=== PATIENT | female | born 1940 | race Caucasian/White ===

== ENCOUNTER → 2017-11-14 15:55 | Outpatient (CLI) | payer OTHER, SELFPAY ==
--- NOTE | 2017-11-14 | DI.RAD.S_ITS ---
PROCEDURE: XR CERVICAL SPINE 2V OR 3V INDICATIONS: CERVICALGIA TECHNIQUE: 3 view(s) of the cervical spine were acquired. COMPARISON: None. FINDINGS: Bones: No fractures or dislocations to the C7 level. The lateral masses of C1 appear intact on the odontoid view. No suspicious bony lesions. Multilevel disc space narrowing and endplate osteophyte formation, worst at C5-C6, and C6-C7, indicating degenerative disc disease. Soft tissues: No prevertebral soft tissue swelling. IMPRESSION: Degenerative disc disease. No acute fracture. No osseous lesion. If clinical suspicion and/or symptoms persist, further assessment with repeat plainfilms, or advanced imaging (e.g., CT, MRI, or bone scan) may be helpful for further assessment. Dictated by: Isaac Benavides M.D. on 11/14/2017 at 16:24 Approved by: Isaac Benavides M.D. on 11/14/2017 at 16:25
== END ==
PROVIDERS: Family Provider Family Medicine; PCP Family Medicine; Visit Provider Family Medicine
DX: M50.322 Other cervical disc degeneration at C5-C6 level (principal)
CPT/HCPCS: 72040

== ENCOUNTER → 2018-07-06 11:53 | Outpatient (CLI) | payer OTHER, SELFPAY ==
--- NOTE | 2018-07-06 | DI.MG.S_ITS ---
BILATERAL DIGITAL SCREENING MAMMOGRAM 3D/2D WITH CAD: 07/06/2018 CLINICAL: Routine screening. Comparison is made to exams dated: 06/23/2017 mammogram, 04/29/2016 mammogram, and 05/29/2015 mammogram - [facility]. The tissue of both breasts is heterogeneously dense. This may lower the sensitivity of mammography. Current study was also evaluated with a Computer Aided Detection (CAD) system. Stable bilateral masses and bilateral benign appearing calcifications. No significant masses, calcifications, or other findings are seen in either breast. There has been no significant interval change. IMPRESSION: There is no mammographic evidence of malignancy. A 1 year screening mammogram is recommended. This exam was interpreted at Station ID: [id number]. NOTE: For mammograms, a report in lay terms will be sent to the patient. Approximately 15% of breast malignancies will not be visualized mammographically. In the management of a palpable breast mass, a negative mammogram must not discourage biopsy of a clinically suspicious lesion. Electronically Signed By: Kirt batres/:07/06/2018 17:29:47 letter sent: Normal Exam ACR BI-RADS Category 2: Benign Finding(s) 3342F
== END ==
PROVIDERS: PCP Family Medicine; Visit Provider Family Medicine
DX: Z12.31 Encounter for screening mammogram for malignant neoplasm of breast (principal)
CPT/HCPCS: 77063; 77067

== ENCOUNTER 2020-01-24 14:19 | Emergency (ER) | payer MEDICARE, SELFPAY ==
[2020-01-24] VITALS (7 sets, daily range): BP systolic 160–167; BP diastolic 72–74; PULSE 58–73; RESP 15–16; TEMP 36.6; O2SAT 94–100; BMI 28.1
--- NOTE | 2020-01-24 14:55 | DI.RAD.S_ITS ---
PROCEDURE: XR ANKLE RT MIN 3V INDICATIONS: fall and injury TECHNIQUE: 3 views of the ankle were acquired. COMPARISON: None. FINDINGS: Bones: Comminuted mildly displaced distal fibular fracture. Horizontal mildly displaced medial malleolar fracture. Question posterior malleolar fracture. Disruption of ankle mortise. No suspicious bony lesions. Soft tissues: No tibiotalar joint effusion. Achilles tendon appears normal. IMPRESSION: Comminuted, mildly displaced distal fibular fracture, horizontal mildly displaced medial malleolar fracture, question posterior malleolar fracture. Disruption of ankle mortise. Dictated by: Alexey Herzog M.D. on 01/24/2020 at 15:18 Approved by: Alexey Herzog M.D. on 01/24/2020 at 15:20
--- NOTE | 2020-01-24 14:58 | ED.LOWEXIN ---
HPI - Extremity Injury (Lower) General Chief Complaint: Extremity Injury, Lower Stated Complaint: RIGHT LEG INJURY SAYS IT IS BROKEN HAD XRAYS Time Seen by Provider: 01/24/20 14:29 Source: patient Mode of arrival: Wheelchair Limitations: no limitations History of Present Illness HPI Narrative: Patient is a 79-year-old female sent over from [facility] secondary to a right tib-fib fracture. Patient states that this morning she tripped on some stairs and fell and twisted her ankle. Was unable to ambulate afterwards. Was able to drive herself to the clinical on work assignment. Had x-rays which showed a right tib-fib fracture. She she was placed in an Isaiah bandage. Given Toradol and sent to the emergency department for evaluation. She reports no other injuries from the event. Related Data Home Medications Medication Instructions Recorded Confirmed conjugated estrogens [Premarin] 0.625 mg PO QDAY #0 07/07/17 Previous Rx's Medication Instructions Recorded hydrocodone-acetaminophen [[place]] 1 tab PO Q4-6H PRN #14 tab 01/24/20 Allergies Allergy/AdvReac Type Severity Reaction Status Date / Time No Known Drug Allergies Allergy Verified 01/24/20 15:07 Review of Systems Constitutional Constitutional: Denies fever(s) Cardiovascular Cardiovascular: Denies chest pain and Denies dyspnea Respiratory Respiratory: Denies dyspnea Gastrointestinal Gastrointestinal: Denies abdominal pain Musculoskeletal Comments: Right ankle pain Integumentary/Breasts Skin/Breast: Denies lesions and Denies rash Neurologic Neurologic: Denies behavioral changes Psychiatric Psychiatric: Denies behavioral changes Hematologic/Lymphatic Hematologic/Lymphatic: Denies easy bleeding and Denies easy bruising Allergic/Immunologic Allergic/Immunologic: Denies urticaria Patient History Medical History Healthy adult (Acute) Social History Smoking Status: Never smoker Smoking Status: Never smoker alcohol intake frequency: 0-2 drinks per day Substance Use Type: does not use Exam Initial Vital Signs Initial Vital Signs: Vital Signs Temperature 97.8 F 01/24/20 14:42 Pulse Rate 73 01/24/20 14:42 Respiratory Rate 16 01/24/20 14:42 Blood Pressure 167/72 H 01/24/20 14:42 Pulse Oximetry 99 01/24/20 14:42 Const General: cooperative and comfortable Limitations: mental status not altered Cardio Pulses: dorsalis pedis present on the right Skin Other: Bruising around the right ankle but no breaks in the skin Neuro Sensory Exam: no sensory deficits noted Extrem Other: Patient with bruising and pain located around the right ankle. No proximal fibula tenderness. Right knee is unremarkable. No other orthopedic injuries found on exam reported by patient. Psych Appearance: well kempt Procedures Orthopedic Splinting/Casting Injury #1: Side: right Lower Extremity Injury Location: ankle Lower Extremity Immobilizer: posterior splint and stirrup splint Other Orthopedic Equipment: crutches Post splinting neuro exam: intact Post splinting vascular exam: intact Placed by: Provider Course Orders Ordered: ED Orders 01/24/20 14:55 XR ankle RT min 3V Stat 01/24/20 15:23 CT LE RT wo con Stat Discontinued Medications Morphine Sulfate (Morphine) 4 mg IM NOW ONE Stop: 01/24/20 15:06 Last Admin: 01/24/20 15:14 Dose: 4 mg Documented by: DAVID Vital Signs Vital signs: Vital Signs - 8 hr 01/24/20 14:42 01/24/20 15:16 01/24/20 15:36 Temperature 97.8 F Pulse Rate 73 Pulse Rate [Right Dorsalis Pedis] Respiratory Rate 16 Blood Pressure 167/72 H Pulse Oximetry 99 100 94 01/24/20 15:59 01/24/20 16:00 01/24/20 16:30 Temperature Pulse Rate 58 L 65 Pulse Rate [Right Dorsalis Pedis] 72 Respiratory Rate Blood Pressure Pulse Oximetry 100 99 01/24/20 16:49 Temperature Pulse Rate 65 Pulse Rate [Right Dorsalis Pedis] Respiratory Rate 15 Blood Pressure 160/74 H Pulse Oximetry MDM - Extremity Injury (Lower) Imaging Data Extremity x-ray #1: Radiologist's Impression: [address] [address] XRay Report Signed Patient: Mary Quiroz MMR#: [id number] : 1Acct:[id number] Age/Sex: 79 / FDate of Service: 01/24/20 Loc: ED Accession Number: [id number] Procedure: XR ankle RT min 3V Ordering Provider: Manuel Torres D.O. PROCEDURE: XR ANKLE RT MIN 3V INDICATIONS: fall and injury TECHNIQUE: 3 views of the ankle were acquired. COMPARISON: None. FINDINGS: Bones: Comminuted mildly displaced distal fibular fracture. Horizontal mildly displaced medial malleolar fracture. Question posterior malleolar fracture. Disruption of ankle mortise. No suspicious bony lesions. Soft tissues: No tibiotalar joint effusion. Achilles tendon appears normal. IMPRESSION: Comminuted, mildly displaced distal fibular fracture, horizontal mildly displaced medial malleolar fracture, question posterior malleolar fracture. Disruption of ankle mortise. Dictated by: Alexey Herzog M.D. on 01/24/2020 at 15:18 Approved by: Alexey Herzog M.D. on 01/24/2020 at 15:20 CT lower extremity: Radiologist's Impression: [address] [address] [address] Scan Report Signed Patient: Mary Quiroz MMR#: [id number] : [id number]:[id number] Age/Sex: 79 / FDate of Service: 01/24/20 Loc: ED Accession Number: [id number] Procedure: CT LE RT wo con Ordering Provider: Manuel Torres D.O. PROCEDURE: CT LE RT WO CON INDICATIONS: Possible trimalleolar fracture TECHNIQUE: Noncontrast 3-mm axial sections acquired from the distal tibial shaft to the talar dome, with coronal and sagittal reformats.. COMPARISON: [facility], CR, XR ANKLE RT MIN 3V, 01/24/2020, 14:58. FINDINGS: Image quality: Excellent. Bones: There is a trimalleolar fracture, involving the right distal tibia and fibula. The fracture across the medial malleolus is approximately 1.3 cm above the malleolar tip, and there is a diagonal fracture involving the distal metadiaphyseal junction of the fibula, with abnormal angulation at the fracture plane associated with medial subluxation of the distal tibial plafond and across the talar dome. A 3rd malleolar fracture is present, mildly comminuted, involving the posterior malleolus, across day border measuring up to 2 cm transverse and with a separation of approximately 3-4 mm at the fracture plane. A talar dome fracture is not found. Soft tissue swelling is prominent without visualized hematoma. The visualized hindfoot and portions of the midfoot included on this study appear free of traumatic injury. Soft tissues: Soft tissue edema and no sign of open fracture. IMPRESSION: Trimalleolar fracture, with abnormal subluxation associated with ligamentous laxity after trauma. The talar dome appears intact, no intra-articular loose body is found. Orthopedic surgical consultation is anticipated. Dictated by: Kevin Lo M.D. on 01/24/2020 at 16:04 Approved by: Kevin Lo M.D. on 01/24/2020 at 16:08 [facility] Narrative Medical decision making narrative: Patient is neurovascularly intact. Splint placed. The emergency department. CT scan obtained. Will send home with crutches. She was given follow-up instructions with orthopedics. Pain medication also provided. She was given return precautions. She expressed understanding and agreement. Discharge Plan Departure Patient Disposition: Home Clinical Impression: Closed trimalleolar fracture of right ankle Qualifiers: Encounter type: initial encounter Qualified Code(s): S82.851A - Displaced trimalleolar fracture of right lower leg, initial encounter for closed fracture Discharge Date/Time: 01/24/20 17:22 Instructions: How to Use Crutches, DI for Ankle Fracture, How to Take Care of Your Splint Activity Restrictions/Additional Instructions: The splint needs to stay on in stay clean and stay dry. You need to treat it like a cast. Do not put any weight on your right lower extremity. Use the crutches as directed. Recommend that tomorrow you contact the [facility] group at [phone] for a follow-up. Return to the emergency department for any new or worsening symptoms Prescriptions: New hydrocodone-acetaminophen [[place]] 5-325 mg tablet 1 tab PO Q4-6H PRN (Reason: pain) Qty: 14 RF: 0 No Action conjugated estrogens [Premarin] 0.625 MG tablet 0.625 mg PO QDAY Qty: 0 RF: 0 Referrals: Bigg Ivan MD [Primary Care Provider] -
[2020-01-24] MEDS: MORPHINE 4 MG/ML INJ IM (15:14)
--- NOTE | 2020-01-24 15:23 | DI.CT.S_ITS ---
PROCEDURE: CT LE RT WO CON INDICATIONS: Possible trimalleolar fracture TECHNIQUE: Noncontrast 3-mm axial sections acquired from the distal tibial shaft to the talar dome, with coronal and sagittal reformats.. COMPARISON: [facility], CR, XR ANKLE RT MIN 3V, 01/24/2020, 14:58. FINDINGS: Image quality: Excellent. Bones: There is a trimalleolar fracture, involving the right distal tibia and fibula. The fracture across the medial malleolus is approximately 1.3 cm above the malleolar tip, and there is a diagonal fracture involving the distal metadiaphyseal junction of the fibula, with abnormal angulation at the fracture plane associated with medial subluxation of the distal tibial plafond and across the talar dome. A 3rd malleolar fracture is present, mildly comminuted, involving the posterior malleolus, across day border measuring up to 2 cm transverse and with a separation of approximately 3-4 mm at the fracture plane. A talar dome fracture is not found. Soft tissue swelling is prominent without visualized hematoma. The visualized hindfoot and portions of the midfoot included on this study appear free of traumatic injury. Soft tissues: Soft tissue edema and no sign of open fracture. IMPRESSION: Trimalleolar fracture, with abnormal subluxation associated with ligamentous laxity after trauma. The talar dome appears intact, no intra-articular loose body is found. Orthopedic surgical consultation is anticipated. Dictated by: Kevin Lo M.D. on 01/24/2020 at 16:04 Approved by: Kevin Lo M.D. on 01/24/2020 at 16:08
== END 2020-01-24 17:22 | disposition home or self-care (01) ==
PROVIDERS: Emergency Provider Emergency Medicine; PCP Family Medicine
DX: S82.851A Displaced trimalleolar fracture of right lower leg, initial encounter for closed fracture (principal); W19.XXXA Unspecified fall, initial encounter
CPT/HCPCS: 73610; 73700; 96372; 99284; J2270

== ENCOUNTER 2020-02-02 05:55 | Day surgery (SDC) | payer MEDICARE, SELFPAY ==
[2020-02-02] VITALS (10 sets, daily range): BP systolic 135–163; BP diastolic 63–78; PULSE 59–70; RESP 10–22; TEMP 36.1–36.9; O2SAT 94–99; BMI 26.2
[2020-02-02] MEDS: LACTATED RINGERS 1,000 ML 42 ML IV (07:05)
[2020-02-02] MEDS: CELECOXIB 200 MG CAPSULE 400 MG PO (07:17)
[2020-02-02] MEDS: ACETAMINOPHEN 325 MG TABLET 975 MG PO (07:18)
--- NOTE | 2020-02-02 07:39 | PM.PREOP ---
Pre-operative Note COVID-19 COVID-19 status: Negative Result date/Date tested (Pos, Neg/Pending): 01/31/20 Interval Note History & Physical reviewed/Exam performed by Physician: Yes Changes to H&P: No
[2020-02-02] MEDS: CEFAZOLIN 1 GM/50 ML FROZ.PIGGY IV (07:48)
--- NOTE | 2020-02-02 08:26 | SUR.OPER ---
Supine on padded OR bed, head on pillow, arms secured on padded arm boards at <90 degrees abduction, bump under right hip, legs uncrossed, safety belt at abdomen, tape over blanket over lower left leg.
[2020-02-02] MEDS: BUPIVACAINE 0.5% (PF) VIAL 30 ML INJ (09:21)
--- NOTE | 2020-02-02 09:35 | P.OP_ITS ---
Operative Date/Time/Diagnoses Date of procedure: 02/02/20 Time of procedure: 09:36 Pre-op diagnosis: Right trimalleolar ankle fracture Post-op diagnosis: same Procedure & Clinicians Procedure: Open reduction internal fixation of medial and lateral malleoli of trimalleolar fracture. Same procedure as scheduled: Yes Indications: The patient is a 79-year-old woman who fell, suffering a trimalleolar ankle fracture on the right. She was seen in the emergency room and placed in a splint and referred to my office for definitive treatment. She has agreed to open reduction internal fixation after discussion of the risks benefits and alternatives. Risks discussed included but were not limited to: Failure of hardware, infection, nerve damage, deep venous thrombosis, pulmonary embolism, stroke, myocardial infarction, permanent paralysis and . Surgeon: Raciel Crockett Click Yes if Unassisted: Yes Anesthesia Type: General, Peripheral nerve block and Local Operative Notes Findings: Trimalleolar ankle fracture with satisfactory reduction. Bone was soft. Closure Type: primary Specimen(s): none sent Prosthetic devices, grafts, tissues, transplants, or devices: Implants used in this procedure were manufactured by the [employer] ([place]) and included a 6 hole 1/3 tubular side plate with 6 screws and a lag screw laterally and 2 partially threaded 40 mm cancellous screws medially. Applied: implant(s) Estimated Blood Loss (mL): 50 Blood products transfused: none Tourniquet time (min): 52 Procedure in detail: Patient was seen in the preoperative area where she identified her right ankle as the operative site in her toes on this foot were marked with my initials. She received preoperative antibiotics. She was taken to the operating room placed on the operating room table in a supine position. She underwent the induction of a peripheral nerve block for postoperative pain control by Anesthesia followed by general anesthetic. The tourniquet was then placed around the proximal left thigh and the low left leg was prepared from the toes to the tourniquet with ChloraPrep in the usual fashion after removing the splint. Right leg was draped through sterile drapes in the usual fashion. A full ?time-out? was performed prior to prepping and draping. The leg was elevated and exsanguinated with an Esmarch bandage the tourniquet inflated to 250 mm of mercury. After about 10 minutes it became evident that this was a venous tourniquet so the pressure was increased to 300 mmHg. The lateral malleolus was approached an approximately 10 cm incision centered over the shaft to the malleolus and carried to the tip. Subcutaneous tissues were carefully dissected with scissors followed by a incision over the periosteum using a 15 scalpel. The periosteum was elevated around the fracture and a reduction clamp used to reduce the fracture into an anatomic position. A leg screw was placed. This had moderately good fixation but was not satisfactory to control the fracture by itself so a 6 hole lateral plate was applied after bending the plate to an anatomic shape. The distal 2 screws in this plate were cancellous as they were at the level of the joint the remaining 4 screws were bicortical cortical screws. Wound was irrigated. Fascia was reapproximated with 0 Vicryl. Subcutaneous layer closed with 3-0 Vicryl. We then turned our attention to the medial side. The medial malleolus was approached an approximately 4 cm curved incision centered over the tip of the the malleolus. Fracture was cleaned of periosteum and reduced using a pointed reduction clamp. The intra-articular portion of the fracture was palpated using a Tifton elevator and the reduction was verified on fluoroscopy as being satisfactory. This was fixed with 2 parallel 40 mm long by 4 mm diameter partially threaded cancellous screws. This wound was also irrigated. Subcutaneous layer was closed with 3-0 Vicryl. Both wounds were then closed with gricelda. 10 mL of 0.5% Marcaine was injected into the wounds for postoperative pain control. Dressings of Xeroform, sterile 4x4s and sterile cast padding followed by nonsterile cast padding and a stirrup type splint were applied. Patient was transported to the recovery room in good condition having tolerated procedure well. The tourniquet was deflated during dressing placement for total tourniquet time of 52 minutes. Complications: none Post-operative Condition: stable Disposition: PACU Plan for aftercare: The patient will be maintained on standard ankle fracture protocol with 4 weeks nonweightbearing in a splint or cast followed by 4 weeks of weight-bearing as tolerated in a walking boot. Gricelda will be removed at the 2 week follow-up. She will be discharged today. She will be provided with oxycodone for postoperative pain control.
[2020-02-02] MEDS: ONDANSETRON 4 MG/2 ML INJ IV (09:54)
[2020-02-02] MEDS: OXYCODONE IR 5 MG TABLET PO (09:54)
--- NOTE | 2020-02-02 10:08 | SUR.PHASEII ---
Patient AZUL's X 4. Cap refill < 2 seconds. Gave po pain medication. Placed ice bag on ankle.
== END 2020-02-02 11:12 | disposition home or self-care (01) ==
PROVIDERS: PCP Family Medicine; Referring Provider Family Medicine; Visit Provider Orthopaedic Surgery
PROC: 0SSF04Z Reposition Right Ankle Joint with Internal Fixation Device, Open Approach (ICD-10-PCS; CPT 27814; principal; 2020-02-02 07:45)
DX: S82.851A Displaced trimalleolar fracture of right lower leg, initial encounter for closed fracture (principal); W19.XXXA Unspecified fall, initial encounter; K21.9 Gastro-esophageal reflux disease without esophagitis
CPT/HCPCS: 27814; J1100; J1170; J2405; J2704

== ENCOUNTER → 2020-06-26 10:50 | Outpatient (CLI) | payer MEDICARE, SELFPAY ==
--- NOTE | 2020-06-26 10:54 | DI.RAD.S_ITS ---
PROCEDURE: XR HIP W PEL IF DONE RT 2V INDICATIONS: right hip pain TECHNIQUE: AP pelvis with lateral view(s) of the right hip(s). COMPARISON: None. FINDINGS: Bones: No fractures or dislocations. Pelvic ring appears intact. No suspicious bony lesions. Mild bilateral degenerative hip joint space narrowing, right greater than left. No erosions. Minimal periarticular osteophytes are present. Soft tissues: The visualized bowel gas pattern is normal. No suspicious soft tissue calcifications. IMPRESSION: Mild bilateral arthritic change within the hips bilaterally. Dictated by: Vanessa Duran M.D. on 06/26/2020 at 13:46 Approved by: Vanessa Duran M.D. on 06/26/2020 at 13:47
--- NOTE | 2020-06-26 11:15 | DI.RAD.S_ITS ---
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 FINDINGS: This blank DEXA report has been sent in error by the PACS system. The correct and complete report will be forthcoming in 1-2 days. Thank you for your patience and understanding. Dictated by: Tali Page MD, PhD on 06/26/2020 at 16:53 Approved by: Tali Page MD, PhD on 06/26/2020 at 16:53
== END ==
PROVIDERS: PCP Family Medicine; Referring Provider Family Medicine; Visit Provider Family Medicine
DX: M25.551 Pain in right hip (principal); M85.851 Other specified disorders of bone density and structure, right thigh; Z78.0 Asymptomatic menopausal state; Z82.62 Family history of osteoporosis
CPT/HCPCS: 73502; 77080

== ENCOUNTER → 2020-07-23 11:09 | Outpatient (CLI) | payer MEDICARE, SELFPAY ==
--- NOTE | 2020-07-23 11:10 | DI.MG.S_ITS ---
BILATERAL DIGITAL SCREENING MAMMOGRAM 3D/2D WITH CAD: 07/23/2020 CLINICAL: Routine screening. Comparison is made to exams dated: 07/06/2018 mammogram, 07/14/2017 mammogram, 06/23/2017 mammogram, 04/29/2016 mammogram, and 01/14/2017 [facility]. The tissue of both breasts is heterogeneously dense. This may lower the sensitivity of mammography. Current study was also evaluated with a Computer Aided Detection (CAD) system. There is a benign mass in the left breast. No significant masses, calcifications, or other findings are seen in either breast. There has been no significant interval change. IMPRESSION: BENIGN There is no mammographic evidence of malignancy. A 1 year screening mammogram is recommended. This exam was interpreted at Station ID: [id number]. NOTE: For mammograms, a report in lay terms will be sent to the patient. Approximately 15% of breast malignancies will not be visualized mammographically. In the management of a palpable breast mass, a negative mammogram must not discourage biopsy of a clinically suspicious lesion. Electronically Signed By: Fidencio malik/payam:07/23/2020 12:12:08 letter sent: Normal Exam ACR BI-RADS Category 2: Benign Finding(s) 3342F
== END ==
PROVIDERS: PCP Family Medicine; Referring Provider Family Medicine; Visit Provider Family Medicine
DX: Z12.31 Encounter for screening mammogram for malignant neoplasm of breast (principal)
CPT/HCPCS: 77063; 77067

== ENCOUNTER → 2021-03-20 11:02 | Outpatient (CLI) | payer MEDICARE, SELFPAY ==
--- NOTE | 2021-03-20 11:02 | DI.MRI.S_ITS ---
PROCEDURE: MR HIP LT WO CON INDICATIONS: left hip pain s/p tearing sensation with pivot motion TECHNIQUE: Noncontrast coronal T1 spin echo and STIR through the bony pelvis. Coronal and axial T2 fast spin echo with fat saturation, sagittal T1 spin echo, and oblique axial T2 fast spin echo with fat saturation through the hip. COMPARISON: [facility] CR, XR HIP W PEL IF DONE LT 2V, 03/04/2021, 10:34. FINDINGS: Image quality: Excellent. Bones and joints: Mild bilateral hip joint osteoarthritic changes are seen. No marrow edema. No intraosseous lesions or fractures. No avascular necrosis of the femoral heads. The visualized lower lumbar spine appears normally aligned. Tendons and ligaments: Mild to moderate distal left gluteus medius and minimus tendinosis and low to moderate grade partial-thickness tear at their greater trochanteric insertion is seen, without significant muscle atrophy. The nearby proximal iliotibial band also appears intact. The iliopsoas tendon appears intact, without adjacent bursal fluid collections or evidence for impingement syndrome. The origin of the hamstring tendon is intact at the ischial tuberosity, as well as the associated sacrotuberous ligament. The straight and reflected heads of the rectus femoris muscle origin appear intact, as well as the conjoint tendon. The ligamentum teres appears intact where visualized. Labrum and cartilage: There is subtle signal abnormality and contour irregularity involving superior anterior labrum suggestive of focal labral tear. Thinning of articulating cartilages of femoral head is seen. The alpha angle of the femur is within normal limits at less than 55 degrees. Soft tissues: Visualized muscles demonstrate normal bulk and internal signal. Quadratus femoris muscle demonstrates no internal edema to suggest ischiofemoral impingement. The proximal sciatic neurovascular bundle appears normal adjacent to the hamstring tendons. No free pelvic fluid. Bladder wall thickness is normal. Genitourinary structures and bowel loops appear normal where visualized. IMPRESSION: 1. 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 No fracture or dislocation. No evidence of avascular necrosis. 2. Finding is suggestive of focal superior anterior left hip labral tear. 3. Tendinosis and low to moderate grade partial-thickness tear involving distal left gluteus medius and minimus tendons at their insertion on greater trochanter. No other muscle or tendon signal abnormality. Dictated by: Neo Simth M.D. on 03/20/2021 at 12:08 Approved by: Neo Smith M.D. on 03/20/2021 at 13:08
== END ==
PROVIDERS: PCP Physician Assistant; Referring Provider Physician Assistant; Visit Provider Physician Assistant
DX: S76.012A Strain of muscle, fascia and tendon of left hip, initial encounter (principal); M16.0 Bilateral primary osteoarthritis of hip; M25.552 Pain in left hip
CPT/HCPCS: 73721

== ENCOUNTER → 2021-04-11 14:00 | Outpatient (CLI) | payer MEDICARE, SELFPAY | PROVIDERS: PCP Physician Assistant; Referring Provider Physician Assistant; Visit Provider Family Medicine | DX: S81.802A Unspecified open wound, left lower leg, initial encounter (principal); R60.0 Localized edema | CPT/HCPCS: 11042; 93922; 99203; 99213 ==

== ENCOUNTER → 2021-07-26 10:52 | Outpatient (CLI) | payer MEDICARE, SELFPAY ==
--- NOTE | 2021-07-26 | DI.MG.S_ITS ---
BILATERAL DIGITAL SCREENING MAMMOGRAM 3D/2D WITH CAD: 07/26/2021 CLINICAL: Routine screening. Comparison is made to exams dated: 07/23/2020 mammogram, 07/06/2018 mammogram, 07/14/2017 mammogram, 06/23/2017 mammogram, and 03/25/2012 mammogram - [facility]. The tissue of both breasts is heterogeneously dense. This may lower the sensitivity of mammography. Current study was also evaluated with a Computer Aided Detection (CAD) system. No significant masses, calcifications, or other findings are seen in either breast. There has been no significant interval change. IMPRESSION: NEGATIVE There is no mammographic evidence of malignancy. A 1 year screening mammogram is recommended. This exam was interpreted at Station ID: [id number]. NOTE: For mammograms, a report in lay terms will be sent to the patient. Approximately 15% of breast malignancies will not be visualized mammographically. In the management of a palpable breast mass, a negative mammogram must not discourage biopsy of a clinically suspicious lesion. Electronically Signed By: Chivo candelaria/payam:07/26/2021 16:30:12 letter sent: Normal Exam ACR BI-RADS Category 1: Negative 3341F
== END ==
PROVIDERS: PCP Physician Assistant; Referring Provider Physician Assistant; Visit Provider Physician Assistant
DX: Z12.31 Encounter for screening mammogram for malignant neoplasm of breast (principal)
CPT/HCPCS: 77063; 77067

== ENCOUNTER → 2021-09-23 09:16 | Outpatient (CLI) | payer MEDICARE, SELFPAY ==
[2021-09-23 19:23] LABS: Add Manual Diff / Slide Review NO; Basophils Absolute Auto 0 /uL (0-100); Basophils Percent Auto 0.5 % (0-2); Eosinophils Absolute Auto 100 /uL (0-450); Eosinophils Percent Auto 1.5 % (2-4); Hemoglobin 13.5 g/dL (12.0-16.0); Lymphocytes Absolute Auto 1700 /uL (1100-4500); Lymphocytes Percent Auto 33.4 % (25-40); Mean Corpuscular Hemoglobin 29.7 PG (26-34); Mean Corpuscular Volume 90.2 fL (80-100); Monocytes Absolute Auto 500 /uL (0-900); Monocytes Percent Auto 9.3 % (3-14); Neutrophils Absolute Auto 2800 /uL (1500-7000); Neutrophils Percent Auto 55.3 % (50-75); Platelet Count 262 X10^3/uL (150-400); Red Blood Cell Count 4.54 X10^6/uL (4.0-5.2); Red Cell Distribution Width 13.3 % (11.6-14.8)
[2021-09-23 19:35] LABS: Alanine Aminotransferase 30 IU/L (<35); Albumin 4.2 g/dL (3.5-5.0); Albumin Globulin Ratio 1.5 (1.0-2.8); Alkaline Phosphatase 108 U/L (38-126); Aspartate Aminotransferase 24 IU/L (14-36); BUN Creatinine Ratio 36.2 (6-22); Bilirubin Total 0.7 mg/dL (0.2-1.3); Blood Urea Nitrogen 21 mg/dL (7-17); Calcium 8.8 mg/dL (8.4-10.2); Carbon Dioxide 26 mmol/L (22-32); Chloride 105 mmol/L (98-107); Cholesterol 237 mg/dL (140-199); Estimated Glomerular Filt Rate > 60 mL/min (>60); Globulin 2.8 g/dL (1.7-4.1); Glucose 131 mg/dL (80-110); HDL Cholesterol 90 mg/dL (40-60); HEMOLYSIS < 15 (0-50); LDL Cholesterol Calculated 128 mg/dL (<100); Potassium 4.4 mmol/L (3.4-5.1); Sodium 139 mmol/L (137-145); Triglycerides 93 mg/dL (35-150)
[2021-09-23 20:03] LABS: TSH w/ Reflex to FT4 1.93 uIU/mL (0.47-4.68)
== END ==
PROVIDERS: PCP Physician Assistant; Visit Provider Physician Assistant
DX: R41.3 Other amnesia (principal); R53.83 Other fatigue; Z13.6 Encounter for screening for cardiovascular disorders
CPT/HCPCS: 80053; 80061; 84443; 85025

== ENCOUNTER → 2021-11-11 08:46 | Outpatient (CLI) | payer MEDICARE, SELFPAY ==
[2021-11-11 20:11] LABS: Add Manual Diff / Slide Review NO; Basophils Absolute Auto 0 /uL (0-100); Basophils Percent Auto 0.4 % (0-2); Eosinophils Absolute Auto 100 /uL (0-450); Eosinophils Percent Auto 2.1 % (2-4); Hematocrit 35.8 % (36-46); Hemoglobin 12.4 g/dL (12.0-16.0); Lymphocytes Absolute Auto 1300 /uL (1100-4500); Lymphocytes Percent Auto 29.2 % (25-40); Mean Corpuscular HGB Conc 34.6 % (30-36); Mean Corpuscular Hemoglobin 31.1 PG (26-34); Mean Corpuscular Volume 90.1 fL (80-100); Monocytes Absolute Auto 400 /uL (0-900); Monocytes Percent Auto 9.1 % (3-14); Neutrophils Absolute Auto 2700 /uL (1500-7000); Neutrophils Percent Auto 59.2 % (50-75); Platelet Count 218 X10^3/uL (150-400); Red Blood Cell Count 3.97 X10^6/uL (4.0-5.2); Red Cell Distribution Width 13.4 % (11.6-14.8); White Blood Cell Count 4.6 X10^3/uL (4.5-11.0)
[2021-11-11 20:13] LABS: Alanine Aminotransferase 20 IU/L (<35); Albumin 3.7 g/dL (3.5-5.0); Albumin Globulin Ratio 1.4 (1.0-2.8); Alkaline Phosphatase 94 U/L (38-126); Aspartate Aminotransferase 24 IU/L (14-36); BUN Creatinine Ratio 26.1 (6-22); Bilirubin Total 0.8 mg/dL (0.2-1.3); Blood Urea Nitrogen 18 mg/dL (7-17); Calcium 8.7 mg/dL (8.4-10.2); Carbon Dioxide 28 mmol/L (22-32); Chloride 101 mmol/L (98-107); Estimated Glomerular Filt Rate > 60 mL/min (>60); Globulin 2.6 g/dL (1.7-4.1); Glucose 152 mg/dL (80-110); HEMOLYSIS < 15 (0-50); Potassium 4.1 mmol/L (3.4-5.1); Sodium 135 mmol/L (137-145); Total Protein 6.3 g/dL (6.3-8.2)
[2021-11-11 21:45] LABS: Hemoglobin A1C% w Est Avg Glu 7.3 % (4.0-6.0)
== END ==
PROVIDERS: PCP Physician Assistant; Visit Provider Physician Assistant
DX: R73.9 Hyperglycemia, unspecified (principal); R23.3 Spontaneous ecchymoses; R43.8 Other disturbances of smell and taste
CPT/HCPCS: 80053; 83036; 85025

== ENCOUNTER → 2021-11-18 11:35 | Outpatient (CLI) | payer MEDICARE, SELFPAY ==
[2021-11-20 17:40] LABS: Fecal Immunochemical Test Negative (Negative)
== END ==
PROVIDERS: PCP Physician Assistant; Visit Provider Physician Assistant
DX: D64.9 Anemia, unspecified (principal); R23.3 Spontaneous ecchymoses; R43.8 Other disturbances of smell and taste; R53.83 Other fatigue
CPT/HCPCS: 82274

== ENCOUNTER 2021-12-10 15:20 | Outpatient (RCR) | payer MEDICARE, SELFPAY ==
--- NOTE | 2021-12-10 16:10 | ST.OPIE ---
Visit Care Team Role Provider Type Shraddha Sosa PA-C Attending Provider Advanced Delicatessen Department Manager Family Provider Primary Care Provider Referring Provider Specialty: Medical Address: [address] [place] [address], [id number] Email: [email or web address] Speech-Language Pathology Initial Evaluation BATCH ATTENDANT Adult Cognitive Linguistic Eval Start: 12/10/21 15:57 Freq: Status: Active Protocol: Document 12/10/21 15:58 LNK (Rec: 12/10/21 16:09 LNK [id number]) Adult Cognitive Linguistic Evaluation Session Time Visit Start Time 15:30 Visit Stop Time 16:00 Total Visit Minutes 30 Visit Information Visit Number [address] Sosa Reason for Referral memory Setting Assessment Location Outpatient Care Visit Type Note Type Initial evaluation Patient Information Identification Type Name,Date of Patient History pt was seen secondary to concerns over her short term memory. Pt reported that she often forgets what she is looking for, or what chores she needs to complete. She reported that she keeps a written list in her bathroom so that she will see it first thing in the day. She finds that this strategy is effective. Additionally, she noted that she has always had difficulty with remembering names, but that hasn't changed . Informal Assessment Receptive Language Normal Yes Expressive Language Normal Yes Pragmatic Language Normal Yes Formal Assessment Standardized Test/Screener Type [facility] Mental Status ([facility]) Administration Complete Results The pt completed the SLUMS without difficulty. She scored 28/30, indicating that, for her age, her cognitive skills are WNL. She was able to recall 5 words after 5 minutes and was able to correctly answer 3/4 questions following a short story read to her. Mental math, listing items in a category, orientation and her clock drawing were all WNL . Discussed the continued use of external memory aids and her current strategies to assist her memory. Encouraged her to contact her physician if she should have concerns in the future. Findings/Results Cognitive Function Within normal limits
== END 2021-12-11 13:39 ==
LOC: SP 15:20
PROVIDERS: Family Provider Physician Assistant; PCP Physician Assistant; Referring Provider Physician Assistant; Visit Provider Physician Assistant
DX: R41.3 Other amnesia (principal)
CPT/HCPCS: 96125

== ENCOUNTER → 2021-12-18 13:37 | Outpatient (CLI) | payer MEDICARE, SELFPAY ==
[2021-12-18 19:56] LABS: Hematocrit 36.8 % (36-46); Hemoglobin 12.5 g/dL (12.0-16.0); Mean Corpuscular Hemoglobin 30.5 PG (26-34); Mean Corpuscular Volume 89.7 fL (80-100); Platelet Count 228 X10^3/uL (150-400); Red Blood Cell Count 4.11 X10^6/uL (4.0-5.2); Red Cell Distribution Width 13.1 % (11.6-14.8); White Blood Cell Count 4.2 X10^3/uL (4.5-11.0)
[2021-12-18 20:20] LABS: HEMOLYSIS < 15 (0-50); Iron 110 ug/dL (37-170)
[2021-12-18 20:33] LABS: Percent Iron Saturation 42 % (15-50); Total Iron Binding Capacity 259 ug/dL (265-497)
[2021-12-18 20:36] LABS: Neutrophils Absolute Manual 1848 /uL (3000-5900); Total Cells Counted 100
[2021-12-18 20:37] LABS: Hemoglobin A1C% w Est Avg Glu 6.9 % (4.0-6.0); RBC Morphology Normal Morphology
[2021-12-18 20:38] LABS: Transferrin 205 mg/dL (206-381)
[2021-12-18 20:59] LABS: Ferritin 107 ng/mL (11-264)
[2021-12-18 21:13] LABS: Vitamin B12 482 pg/mL (239-931)
== END ==
PROVIDERS: Family Provider Physician Assistant; PCP Physician Assistant; Visit Provider Physician Assistant
DX: D64.9 Anemia, unspecified (principal); R23.3 Spontaneous ecchymoses; R43.8 Other disturbances of smell and taste; R53.83 Other fatigue; R73.9 Hyperglycemia, unspecified
CPT/HCPCS: 82607; 82728; 83036; 83540; 83550; 85025

== ENCOUNTER → 2022-04-09 11:38 | Outpatient (CLI) | payer MEDICARE, SELFPAY ==
[2022-04-09 19:56] LABS: Add Manual Diff / Slide Review NO; Basophils Absolute Auto 0 /uL (0-100); Basophils Percent Auto 0.7 % (0-2); Eosinophils Absolute Auto 100 /uL (0-450); Eosinophils Percent Auto 2.2 % (2-4); Hematocrit 39.4 % (36-46); Hemoglobin 12.9 g/dL (12.0-16.0); Lymphocytes Absolute Auto 1100 /uL (1100-4500); Lymphocytes Percent Auto 24.1 % (25-40); Mean Corpuscular HGB Conc 32.8 % (30-36); Mean Corpuscular Hemoglobin 29.7 PG (26-34); Mean Corpuscular Volume 90.5 fL (80-100); Monocytes Absolute Auto 300 /uL (0-900); Monocytes Percent Auto 7.3 % (3-14); Neutrophils Absolute Auto 3100 /uL (1500-7000); Neutrophils Percent Auto 65.7 % (50-75); Platelet Count 226 X10^3/uL (150-400); Red Blood Cell Count 4.36 X10^6/uL (4.0-5.2); Red Cell Distribution Width 13.3 % (11.6-14.8); White Blood Cell Count 4.8 X10^3/uL (4.5-11.0)
[2022-04-09 20:11] LABS: Hemoglobin A1C% w Est Avg Glu 8.1 % (4.0-6.0)
[2022-04-09 20:12] LABS: Alanine Aminotransferase 30 IU/L (<35); Albumin 3.8 g/dL (3.5-5.0); Albumin Globulin Ratio 1.3 (1.0-2.8); Alkaline Phosphatase 115 U/L (38-126); Aspartate Aminotransferase 23 IU/L (14-36); BUN Creatinine Ratio 30.5 (6-22); Bilirubin Total 0.7 mg/dL (0.2-1.3); Blood Urea Nitrogen 18 mg/dL (7-17); Calcium 8.7 mg/dL (8.4-10.2); Carbon Dioxide 28 mmol/L (22-32); Chloride 99 mmol/L (98-107); Estimated Glomerular Filt Rate > 60 mL/min (>60); Globulin 2.9 g/dL (1.7-4.1); Glucose 285 mg/dL (80-110); HEMOLYSIS < 15 (0-50); Potassium 4.1 mmol/L (3.4-5.1); Sodium 134 mmol/L (137-145); Total Protein 6.7 g/dL (6.3-8.2)
== END ==
PROVIDERS: Family Provider Physician Assistant; PCP Physician Assistant; Visit Provider Physician Assistant
DX: R73.9 Hyperglycemia, unspecified (principal); R79.9 Abnormal finding of blood chemistry, unspecified
CPT/HCPCS: 80053; 83036; 85025

== ENCOUNTER → 2022-06-09 10:46 | Outpatient (CLI) | payer MEDICARE, SELFPAY ==
[2022-06-09 20:55] LABS: Hemoglobin A1C% w Est Avg Glu 8.6 % (4.0-6.0)
== END ==
PROVIDERS: Family Provider Physician Assistant; PCP Physician Assistant; Visit Provider Physician Assistant
DX: E11.9 Type 2 diabetes mellitus without complications (principal)
CPT/HCPCS: 83036

== ENCOUNTER → 2022-07-21 13:25 | Outpatient (CLI) | payer MEDICARE, SELFPAY ==
[2022-07-21 19:43] LABS: Alanine Aminotransferase 39 IU/L (<35); Albumin 3.8 g/dL (3.5-5.0); Albumin Globulin Ratio 1.2 (1.0-2.8); Alkaline Phosphatase 95 U/L (38-126); Aspartate Aminotransferase 33 IU/L (14-36); BUN Creatinine Ratio 32.2 (6-22); Bilirubin Total 0.5 mg/dL (0.2-1.3); Blood Urea Nitrogen 19 mg/dL (7-17); Calcium 8.9 mg/dL (8.4-10.2); Carbon Dioxide 28 mmol/L (22-32); Chloride 100 mmol/L (98-107); Estimated Glomerular Filt Rate > 60 mL/min (>60); Globulin 3.1 g/dL (1.7-4.1); Glucose 153 mg/dL (80-110); HEMOLYSIS < 15 (0-50); Potassium 3.9 mmol/L (3.4-5.1); Sodium 135 mmol/L (137-145); Total Protein 6.9 g/dL (6.3-8.2)
[2022-07-23 00:36] LABS: Labcorp Hemoglobin (Hb) A1c 8.1 % (4.8-5.6)
== END ==
PROVIDERS: Family Provider Physician Assistant; PCP Physician Assistant; Visit Provider Physician Assistant
DX: E11.9 Type 2 diabetes mellitus without complications (principal)
CPT/HCPCS: 80053; 83036

== ENCOUNTER → 2022-08-14 13:26 | Outpatient (CLI) | payer MEDICARE, SELFPAY ==
--- NOTE | 2022-08-14 | DI.MG.S_ITS ---
BILATERAL DIGITAL SCREENING MAMMOGRAM 3D/2D WITH CAD: 08/14/2022 CLINICAL: Routine screening. Comparison is made to exams dated: 07/26/2021 mammogram, 07/23/2020 mammogram, 07/06/2018 mammogram, 06/23/2017 mammogram, and 04/29/2016 mammogram - [facility]. Both breasts are heterogeneously dense, which may obscure small masses (category c / 51-75% glandular tissue). Current study was also evaluated with a Computer Aided Detection (CAD) system. No significant masses, calcifications, or other findings are seen in either breast. There has been no significant interval change. IMPRESSION: NEGATIVE There is no mammographic evidence of malignancy. A 1 year screening mammogram is recommended. Based on the Tyrer Cuzick model (a risk assessment model) the patient's lifetime risk is 1.0% and her 10 year risk is 0.0%. According to the ACR, ACS, and NCCN guidelines, an annual breast MRI exam along with mammogram is recommended if the patient's lifetime risk is 20% or greater. This exam was interpreted at Station ID: [id number]. NOTE: For mammograms, a report in lay terms will be sent to the patient. Approximately 15% of breast malignancies will not be visualized mammographically. In the management of a palpable breast mass, a negative mammogram must not discourage biopsy of a clinically suspicious lesion. Electronically Signed By: Fidencio malik/payam:08/14/2022 15:27:49 letter sent: Normal Exam ACR BI-RADS Category 1: Negative 3341F
== END ==
PROVIDERS: Family Provider Physician Assistant; PCP Physician Assistant; Referring Provider Physician Assistant; Visit Provider Physician Assistant
DX: Z12.31 Encounter for screening mammogram for malignant neoplasm of breast (principal)
CPT/HCPCS: 77063; 77067

== ENCOUNTER → 2022-10-08 15:55 | Outpatient (CLI) | payer MEDICARE, SELFPAY | PROVIDERS: Family Provider Physician Assistant; PCP Physician Assistant; Visit Provider Nurse Practitioner Family | DX: L03.90 Cellulitis, unspecified (principal) | CPT/HCPCS: 87070; 87075; 87205 ==

== ENCOUNTER → 2022-10-20 09:20 | Outpatient (CLI) | payer MEDICARE, SELFPAY ==
[2022-10-20 19:52] LABS: Alanine Aminotransferase 34 IU/L (<35); Albumin Globulin Ratio 1.4 (1.0-2.8); Alkaline Phosphatase 71 U/L (38-126); Aspartate Aminotransferase 28 IU/L (14-36); BUN Creatinine Ratio 31.4 (6-22); Bilirubin Total 0.7 mg/dL (0.2-1.3); Blood Urea Nitrogen 22 mg/dL (7-17); Calcium 9.2 mg/dL (8.4-10.2); Carbon Dioxide 30 mmol/L (22-32); Chloride 103 mmol/L (98-107); Estimated Glomerular Filt Rate > 60 mL/min (>60); Globulin 2.8 g/dL (1.7-4.1); Glucose 130 mg/dL (80-110); HEMOLYSIS < 15 (0-50); Potassium 4.1 mmol/L (3.4-5.1); Sodium 137 mmol/L (137-145); Total Protein 6.8 g/dL (6.3-8.2)
[2022-10-20 19:53] LABS: Cholesterol 170 mg/dL (140-199); HDL Cholesterol 70 mg/dL (40-60); LDL Cholesterol Calculated 81 mg/dL (<100); Triglycerides 95 mg/dL (35-150)
[2022-10-21 22:36] LABS: Labcorp Hemoglobin (Hb) A1c 6.8 % (4.8-5.6)
== END ==
PROVIDERS: Family Provider Physician Assistant; PCP Physician Assistant; Visit Provider Physician Assistant
DX: E11.9 Type 2 diabetes mellitus without complications (principal); R74.8 Abnormal levels of other serum enzymes; E78.5 Hyperlipidemia, unspecified
CPT/HCPCS: 80053; 80061; 83036

== ENCOUNTER → 2022-11-25 16:02 | Outpatient (CLI) | payer MEDICARE, SELFPAY ==
--- NOTE | 2022-11-25 16:06 | DI.MRI.S_ITS ---
PROCEDURE: MR HIP RT WO CON INDICATIONS: worsening right hip pain. TECHNIQUE: Noncontrast coronal T1 spin echo and STIR through the bony pelvis. Coronal and axial T2 fast spin echo with fat saturation, sagittal T1 spin echo, and oblique axial T2 fast spin echo with fat saturation through the hip. COMPARISON: [facility], MR, MR HIP LT WO CON, 03/20/2021, 11:12. FINDINGS: Image quality: Excellent. Bones and joints: Mild periarticular osteophyte formation at the bilateral hip joints. Bone marrow of the pelvic ring and proximal femurs show normal signal throughout. No intraosseous lesions or fractures. No avascular necrosis of the femoral heads. The visualized lower lumbar spine appears normally aligned. Tendons and ligaments: Moderate grade tearing of the gluteus medius tendon at the femoral insertion site, predominantly anteriorly. High-grade tearing of the gluteus minimus tendon at the femoral insertion site.. The nearby proximal iliotibial band also appears intact. The iliopsoas tendon appears intact, without adjacent bursal fluid collections or evidence for impingement syndrome. The origin of the hamstring tendon is intact at the ischial tuberosity, as well as the associated sacrotuberous ligament. Mild T2 signal elevation adjacent to the ischial origin of the right hamstring tendon. The straight and reflected heads of the rectus femoris muscle origin appear intact, as well as the conjoint tendon. The ligamentum teres appears intact where visualized. Labrum and cartilage: Linear high T2 signal intensity traverses the right hip labrum diffusely. Cartilage surface of the femoral head appears of normal thickness. The alpha angle of the femur is within normal limits at less than 55 degrees. Soft tissues: Visualized muscles demonstrate normal bulk and internal signal. Quadratus femoris muscle demonstrates no internal edema to suggest ischiofemoral impingement. The proximal sciatic neurovascular bundle appears normal adjacent to the hamstring tendons. No free pelvic fluid. Bladder wall thickness is normal. Genitourinary structures and bowel loops appear normal where visualized. IMPRESSION: 1. Right gluteus medius and minimus tendon tearing. 2. 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 3. Mild right hamstring tendinopathy. Dictated by: Rupa Andrade M.D. on 11/26/2022 at 8:38 Approved by: Rupa Andrade M.D. on 11/26/2022 at 8:40
--- NOTE | 2022-11-25 16:06 | DI.MRI.S_ITS ---
PROCEDURE: MR LUMBAR SPINE WO CON INDICATIONS: concern for lumbar radicular symptoms. TECHNIQUE: Noncontrast sagittal T1 spin echo and T2 fast echo, sagittal STIR, and T2 fast spin echo through the lumbar spine. In cases with scoliosis, additional coronal T2 fast spin echo may be performed. COMPARISON: [facility], , L-SPINE WITHOUT CONTRAST, 06/20/2009, 10:04. FINDINGS: Image quality: Excellent. Alignment and Curvature: Grade 1 anterolisthesis of L4 on L5. Bone Marrow: Marrow is of normal overall signal. No acute vertebral body compression fractures. Spinal Cord: Conus medullaris terminates at the L1 level. Visualized cord demonstrates normal signal and size. Paraspinous Soft Tissues: No paravertebral masses. T12-L1: Facet arthropathy. No central canal or neural foraminal stenosis. L1-L2: Disc desiccation and height loss with a posterior disc bulge. Facet arthropathy and thickening of the ligamentum flavum. No central canal or neural foraminal stenosis. L2-L3: Disc desiccation and small posterior disc bulge. Macro facet mild epidural lipomatosis. No central canal or neural foraminal stenosis. L3-L4: Disc desiccation and height loss with a posterior disc bulge. Facet arthropathy and thickening of the ligamentum flavum. Mild to moderate central canal stenosis no significant neural foraminal stenosis. L4-L5: Anterolisthesis. Small posterior disc bulge. Facet arthropathy and thickening ligamentum flavum. Mild epidural lipomatosis. Moderate central canal stenosis is mildly progressed compared to prior. No neural foraminal stenosis. L5-S1: No central canal or neural foraminal stenosis. IMPRESSION: 1. Degenerative changes of the lumbar spine, progressed compared to MRI lumbar spine 2009. 2. Progression of mild to moderate central canal stenosis at L3-L4 and moderate central canal stenosis at L4-5. 3. No significant neural foraminal stenosis. Dictated by: Jona Madden M.D. on 11/26/2022 at 9:38 Approved by: Jona Madden M.D. on 11/26/2022 at 9:44
== END ==
PROVIDERS: Family Provider Physician Assistant; PCP Physician Assistant; Referring Provider Physician Assistant; Visit Provider Physician Assistant
DX: S73.102A Unspecified sprain of left hip, initial encounter (principal); M16.11 Unilateral primary osteoarthritis, right hip; S76.011A Strain of muscle, fascia and tendon of right hip, initial encounter; M47.816 Spondylosis without myelopathy or radiculopathy, lumbar region; M48.061 Spinal stenosis, lumbar region without neurogenic claudication; M25.551 Pain in right hip; G57.91 Unspecified mononeuropathy of right lower limb; R20.2 Paresthesia of skin; R25.2 Cramp and spasm; G89.29 Other chronic pain
CPT/HCPCS: 72148; 73721

== ENCOUNTER → 2022-12-22 09:01 | Outpatient (CLI) | payer MEDICARE, SELFPAY ==
[2022-12-22 19:45] LABS: Cholesterol 185 mg/dL (140-199); HDL Cholesterol 80 mg/dL (40-60); LDL Cholesterol Calculated 85 mg/dL (<100); Triglycerides 101 mg/dL (35-150)
[2022-12-22 19:52] LABS: Hemoglobin A1C% w Est Avg Glu 6.4 % (4.0-6.0)
[2022-12-22 20:21] LABS: Microalbumi Creatinin Ratio Ur 7.9 ug/mg CR (<30); Microalbumin Urine Random 0.8 mg/dL (0-1.6)
== END ==
PROVIDERS: Family Provider Physician Assistant; PCP Physician Assistant; Visit Provider Physician Assistant
DX: E11.65 Type 2 diabetes mellitus with hyperglycemia (principal); E78.5 Hyperlipidemia, unspecified; R25.2 Cramp and spasm
CPT/HCPCS: 80061; 82043; 82570; 83036

== ENCOUNTER → 2023-02-11 08:58 | Outpatient (CLI) | payer MEDICARE, SELFPAY ==
[2023-02-11 19:54] LABS: Alanine Aminotransferase 38 IU/L (<35); Albumin 3.8 g/dL (3.5-5.0); Albumin Globulin Ratio 1.4 (1.0-2.8); Alkaline Phosphatase 90 U/L (38-126); Aspartate Aminotransferase 28 IU/L (14-36); BUN Creatinine Ratio 29.2 (6-22); Bilirubin Total 0.6 mg/dL (0.2-1.3); Blood Urea Nitrogen 19 mg/dL (7-17); Calcium 9.2 mg/dL (8.4-10.2); Carbon Dioxide 29 mmol/L (22-32); Chloride 103 mmol/L (98-107); Cholesterol 167 mg/dL (140-199); Estimated Glomerular Filt Rate > 60 mL/min (>60); Globulin 2.8 g/dL (1.7-4.1); Glucose 199 mg/dL (80-110); HDL Cholesterol 86 mg/dL (40-60); HEMOLYSIS < 15 (0-50); LDL Cholesterol Calculated 64 mg/dL (<100); Potassium 4.2 mmol/L (3.4-5.1); Total Protein 6.6 g/dL (6.3-8.2); Triglycerides 86 mg/dL (35-150)
[2023-02-11 19:58] LABS: Add Manual Diff / Slide Review NO; Basophils Absolute Auto 0 /uL (0-100); Basophils Percent Auto 0.7 % (0-2); Eosinophils Absolute Auto 100 /uL (0-450); Eosinophils Percent Auto 2.1 % (2-4); Hematocrit 36.6 % (36-46); Hemoglobin 12.5 g/dL (12.0-16.0); Lymphocytes Absolute Auto 1700 /uL (1100-4500); Lymphocytes Percent Auto 31.7 % (25-40); Mean Corpuscular HGB Conc 34.2 % (30-36); Mean Corpuscular Hemoglobin 30.7 PG (26-34); Mean Corpuscular Volume 89.8 fL (80-100); Monocytes Absolute Auto 400 /uL (0-900); Monocytes Percent Auto 8.5 % (3-14); Neutrophils Absolute Auto 3000 /uL (1500-7000); Platelet Count 222 X10^3/uL (150-400); Red Blood Cell Count 4.08 X10^6/uL (4.0-5.2); Red Cell Distribution Width 12.8 % (11.6-14.8); White Blood Cell Count 5.2 X10^3/uL (4.5-11.0)
[2023-02-11 20:12] LABS: Sodium 136 mmol/L (137-145)
[2023-02-11 20:18] LABS: TSH w/ Reflex to FT4 1.92 uIU/mL (0.47-4.68)
== END ==
PROVIDERS: Family Provider Physician Assistant; PCP Physician Assistant; Visit Provider Physician Assistant
DX: E11.65 Type 2 diabetes mellitus with hyperglycemia (principal); E78.5 Hyperlipidemia, unspecified; D64.9 Anemia, unspecified
CPT/HCPCS: 80053; 80061; 83036; 84443; 85025

== ENCOUNTER → 2023-03-04 13:43 | Outpatient (CLI) | payer MEDICARE, SELFPAY ==
[2023-03-04 20:27] LABS: Albumin 4.3 g/dL (3.5-5.0); BUN Creatinine Ratio 33.3 (6-22); Blood Urea Nitrogen 21 mg/dL (7-17); Calcium 9.9 mg/dL (8.4-10.2); Carbon Dioxide 29 mmol/L (22-32); Chloride 100 mmol/L (98-107); Cholesterol 163 mg/dL (140-199); Estimated Glomerular Filt Rate > 60 mL/min (>60); Glucose 160 mg/dL (80-110); HDL Cholesterol 80 mg/dL (40-60); HEMOLYSIS < 15 (0-50); LDL Cholesterol Calculated 66 mg/dL (<100); Phosphorous 3.5 mg/dL (2.8-4.1); Potassium 3.9 mmol/L (3.4-5.1); Sodium 136 mmol/L (137-145); Triglycerides 86 mg/dL (35-150)
[2023-03-04 20:46] LABS: Creatinine Urine Random 92.6 mg/dL
[2023-03-04 20:51] LABS: Microalbumi Creatinin Ratio Ur 9.7 ug/mg CR (<30); Microalbumin Urine Random 0.9 mg/dL (0-1.6)
== END ==
PROVIDERS: Family Provider Physician Assistant; PCP Physician Assistant; Visit Provider Student in an Organized Health Care Education/Training Program
DX: E11.65 Type 2 diabetes mellitus with hyperglycemia (principal)
CPT/HCPCS: 80061; 80069; 82043; 82570

== ENCOUNTER → 2023-03-11 16:32 | Outpatient (CLI) | payer MEDICARE, SELFPAY | PROVIDERS: Family Provider Physician Assistant; PCP Physician Assistant; Visit Provider Nurse Practitioner Family | DX: T14.8XXA Other injury of unspecified body region, initial encounter (principal) | CPT/HCPCS: 87070; 87075; 87077; 87186; 87205 ==

== ENCOUNTER → 2023-03-25 10:08 | Outpatient (CLI) | payer MEDICARE, SELFPAY ==
[2023-03-25 19:51] LABS: Hemoglobin A1C% w Est Avg Glu 7.9 % (4.0-6.0)
== END ==
PROVIDERS: Family Provider Physician Assistant; PCP Physician Assistant; Visit Provider Physician Assistant
DX: E11.9 Type 2 diabetes mellitus without complications (principal)
CPT/HCPCS: 83036

== ENCOUNTER → 2023-07-02 09:34 | Outpatient (CLI) | payer MEDICARE, SELFPAY ==
[2023-07-02 20:36] LABS: Add Manual Diff / Slide Review NO; Basophils Absolute Auto 0 /uL (0-100); Basophils Percent Auto 0.5 % (0-2); Eosinophils Absolute Auto 100 /uL (0-450); Eosinophils Percent Auto 1.8 % (2-4); Hematocrit 40.1 % (36-46); Hemoglobin 13.2 g/dL (12.0-16.0); Lymphocytes Absolute Auto 1900 /uL (1100-4500); Lymphocytes Percent Auto 35.8 % (25-40); Mean Corpuscular Volume 90.7 fL (80-100); Monocytes Absolute Auto 500 /uL (0-900); Monocytes Percent Auto 8.7 % (3-14); Neutrophils Absolute Auto 2800 /uL (1500-7000); Neutrophils Percent Auto 53.2 % (50-75); Platelet Count 244 X10^3/uL (150-400); Red Blood Cell Count 4.42 X10^6/uL (4.0-5.2); Red Cell Distribution Width 13.6 % (11.6-14.8); White Blood Cell Count 5.2 X10^3/uL (4.5-11.0)
[2023-07-02 21:15] LABS: TSH w/ Reflex to FT4 1.87 uIU/mL (0.47-4.68)
[2023-07-02 22:09] LABS: Alanine Aminotransferase 21 IU/L (<35); Albumin 4.1 g/dL (3.5-5.0); Albumin Globulin Ratio 1.3 (1.0-2.8); Alkaline Phosphatase 77 U/L (38-126); Aspartate Aminotransferase 30 IU/L (14-36); BUN Creatinine Ratio 32.2 (6-22); Bilirubin Total 0.4 mg/dL (0.2-1.3); Blood Urea Nitrogen 19 mg/dL (7-17); Calcium 9.4 mg/dL (8.4-10.2); Carbon Dioxide 30 mmol/L (22-32); Chloride 105 mmol/L (98-107); Cholesterol 243 mg/dL (140-199); Estimated Glomerular Filt Rate > 60 mL/min (>60); Globulin 3.2 g/dL (1.7-4.1); Glucose 158 mg/dL (80-110); HDL Cholesterol 92 mg/dL (40-60); HEMOLYSIS < 15 (0-50); LDL Cholesterol Calculated 129 mg/dL (<100); Potassium 4.1 mmol/L (3.4-5.1); Sodium 137 mmol/L (137-145); Total Protein 7.3 g/dL (6.3-8.2); Triglycerides 108 mg/dL (35-150)
== END ==
PROVIDERS: Family Provider Physician Assistant; PCP Physician Assistant; Visit Provider Physician Assistant
DX: E78.5 Hyperlipidemia, unspecified (principal); R74.8 Abnormal levels of other serum enzymes; E11.65 Type 2 diabetes mellitus with hyperglycemia; R53.83 Other fatigue; R41.3 Other amnesia; Z79.899 Other long term (current) drug therapy
CPT/HCPCS: 80053; 80061; 84443; 85025

== ENCOUNTER → 2023-07-10 10:49 | Outpatient (CLI) | payer MEDICARE, SELFPAY ==
--- NOTE | 2023-07-22 17:20 | DIAB.MNT ---
Initial Diabetes Medical Nutrition Therapy Assessment Name: Mary Quiroz Date: 07/10/23 Time: 11a-12p Dx: Type II Diabetes Mary presents for initial DM visit. Reports PMH of DM x 1+ year. Reports last month she reduced Januvia dose due to lower BG of 71-81mg/dl (per Eun recs), however today presents FBG 170-210mg/dl. States her BG is around 200mg/dl all day long. Reports variable BG management after getting Covid infection 2x since January. States she would like some guidance on nutrition and BG management. states she misses eating potatoes. Potential slight dehydration given slightly darker urine reported Offered DSME classes, declined at this time. Diet Recall: 930a: thin ww bread with PB and handful of berries OR steel cut oats x 1/3-1/2c cooked with monkfruit sweetener OR veggies and meat left overs 1-2p: half ham sandwich OR veg soup OR salad with protein sn: nothing or Sf pudding OR small almond flour crackers <5 OR carrots Or celery with ranch 6-7p: meat with veggies sometimes 1/2c noodles or 1/3c potatoes Hs: same as afternoon snack OR nuts 6c water or less Anthropometrics: Ht: 4'11 Wt: 118# reported Weight history: UBW reported 136#; last wt 120.25# 06/2023 Physical Activity: walk 45 min 3 x per week. H/o broken leg in 2019. [place] this was a barrier to walking until this year. Self-Monitoring Blood Glucose: FB, 182, 207, 197, 205, 202, 186 mg/dl -- All FBG elevated. Three recent pc readings ranging from 197-286 mg/dl. Diabetes Medications: 1000mg Metformin BID 100mg Sitagliptin (taking 50mg) Pertinent Labs: HgA1c: 6.4% 12/2022 8% 02/2023 7.9% 03/2023 Past Medical History: (Last Updated 06/16/22 @ 13:24 by Rosalba Madden LPN) Abrasion of vagina and vulva, initial encounter Age-related osteoporosis without current pathological fracture Dermatitis, unspecified Displaced bimalleolar fracture of right lower leg, initial encounter for closed fracture Displaced trimalleolar fracture of right lower leg, sequela Drusen of optic disc, bilateral Fall (on) (from) unspecified stairs and steps, initial encounter Healthy adult Hormone replacement therapy (HRT) Other abnormalities of gait and mobility Other acute postprocedural pain Pain in right hip Physical exam Nutrition Rx: Carbohydrates: Meal:30g Snack:15-30g Nutrition Diagnosis: - Predicted inadequate fluid intake r/t needing strategies to increasing water aeb pt report darker urine - Food and nutrition related knowledge deficit r/t limited nutrition education aeb pt report Intervention: This participant was very receptive. Provided appropriate educational handouts. Discussed the following topics: Completed intake assessment. Discussed barriers to care. Pathophysiology of T2DM Plate Method, impact of macronutrients on blood sugar, meal timing, carbohydrate counting, pairing macronutrients and spreading out carbohydrates for better blood glucose management Recommended servings for carbohydrates at meals and snacks Heart health nutrition Role of physical activity and following provider guidelines for safety Hydration recs and impact on BG Fiber recs and impact on BG and heart health Gluconeogenesis Created SMART goals for patient self-care and success. Goals: Aim for 1.5-2Qt water per day Keep some water upstairs and downstairs or a easy carry water bottle Call endo about FBG elevations and Januvia dose Try HS snack Follow-up: FABIANA CHAPA follow-up in 2-3 weeks Missy Ramirez RDN, SAMMI Certified Diabetes Care and Snack Foods Mixer Operator P: [phone] Thank you for this referral
== END ==
PROVIDERS: Family Provider Physician Assistant; PCP Physician Assistant; Referring Provider Physician Assistant; Visit Provider Physician Assistant
DX: E11.65 Type 2 diabetes mellitus with hyperglycemia (principal); Z79.84 Long term (current) use of oral hypoglycemic drugs; Z71.3 Dietary counseling and surveillance
CPT/HCPCS: 97802

== ENCOUNTER 2023-08-28 10:41 | Emergency (ER) | payer MEDICARE, SELFPAY ==
[2023-08-28 10:45] VITALS: BP 149/90; PULSE 55; RESP 14; TEMP 36.2; O2SAT 100; BMI 23.8
--- NOTE | 2023-08-28 10:47 | DI.RAD.S_ITS ---
PROCEDURE: XR KNEE RT 3V INDICATIONS: fall,knee pain TECHNIQUE: 3 views of the knee were acquired. COMPARISON: None. FINDINGS: Bones: No fractures or dislocations. No suspicious bony lesions. Soft tissues: No joint effusion. No suspicious soft tissue calcifications. IMPRESSION: No acute osseous abnormality. If pain persists with conservative management, consider repeat x-ray in 10-14 days or cross-sectional imaging. Dictated by: Jona Madden M.D. on 08/28/2023 at 10:35 Approved by: Jona Madden M.D. on 08/28/2023 at 10:36
--- NOTE | 2023-08-28 11:34 | ED.FALL ---
HPI - Fall General Chief Complaint: Fall Stated Complaint: fall Time Seen by Provider: 08/28/23 11:34 Source: patient Mode of arrival: Wheelchair History of Present Illness HPI Narrative: Patient 82-year-old female without significant past medical history presenting to right knee pain. She tripped and fell waiting outside for family members who were in the ED. No head injury no loss of consciousness not on any anticoagulation medication. Ankle is stable no injury to Related Data Home Medications Medication Instructions Recorded Confirmed sitagliptin phosphate 100 mg 100 mg PO DAILY 06/17/23 06/17/23 tablet (Januvia) Previous Rx's Medication Instructions Recorded triamcinolone acetonide 0.1 % 1 applic topical BID PRN 07/29/21 topical cream dermatitis #30 grams fluticasone propionate 50 1 spray intranasal Q12H #16 grams 01/30/22 mcg/actuation nasal spray,suspension (Allergy Relief (fluticasone)) sodium chloride 0.65 % nasal drops 2 drp intranasal QID PRN dry nasal 04/24/22 (Mcrae Helena Saline) passages #50 mL blood-glucose meter #1 ea 06/16/22 estradiol 1 mg tablet 1 mg PO DAILY #90 tabs 11/17/22 metformin 1,000 mg tablet 1,000 mg PO BID #180 tabs 02/19/23 blood sugar diagnostic (Blood #100 ea 06/17/23 Glucose Test strips) lancets 33 gauge #300 ea 07/13/23 sertraline 25 mg tablet 25 mg PO DAILY #30 tabs 08/03/23 Allergies Allergy/AdvReac Type Severity Reaction Status Date / Time No Known Drug Allergies Allergy Verified 08/28/23 10:45 Patient History Medical History Drusen of optic disc, bilateral Physical exam Pain in right hip Other acute postprocedural pain Hormone replacement therapy (HRT) Fall (on) (from) unspecified stairs and steps, initial encounter Displaced trimalleolar fracture of right lower leg, sequela Displaced bimalleolar fracture of right lower leg, initial encounter for closed fracture Dermatitis, unspecified Age-related osteoporosis without current pathological fracture Abrasion of vagina and vulva, initial encounter Other abnormalities of gait and mobility Healthy adult Surgical History Hx of colonoscopy (07/07/17) Social History household members: family Smoking Status: Never smoker alcohol intake: current Smoking Status: Never smoker alcohol intake frequency: holidays/special occasions only Substance Use Type: does not use Exam Initial Vital Signs Initial Vital Signs: Vital Signs Temperature 97.2 F L 08/28/23 10:45 Pulse Rate 55 L 08/28/23 10:45 Respiratory Rate 14 08/28/23 10:45 Blood Pressure 149/90 H 08/28/23 10:45 Pulse Oximetry 100 08/28/23 10:45 Oxygen Delivery Method Room Air 08/28/23 10:45 GENERAL: Well-appearing, well-nourished and in no acute distress. CARDIOVASCULAR: peripheral pulses in tact, cap refill <2 sec RESPIRATORY: No respiratory distress, speaks in full sentences without difficulty EXTREMITIES: Normal range of motion, no clubbing or edema. Neurovascularly intact Right lower extremity knee is stable minimal swelling ankle stable distal pedal pulse intact NEUROLOGICAL: Cranial nerves II through XII grossly intact. Normal gait and speech. SKIN: Warm, dry, no petechiae, no rashes or lesions. Course Orders Ordered: ED Orders 08/28/23 10:47 XR knee RT 3V Stat Discontinued Medications Acetaminophen (Acetaminophen 325 Mg Tablet) 975 mg PO NOW ONE Stop: 08/28/23 11:46 Last Admin: 08/28/23 11:51 Dose: 975 mg Documented By: MATIAS Vital Signs Vital signs: Vital Signs - 8 hr 08/28/23 10:45 Temperature 97.2 F L Pulse Rate 55 L Respiratory Rate 14 Blood Pressure 149/90 H Pulse Oximetry 100 Oxygen Delivery Method Room Air MDM - Fall Imaging Data Extremity x-ray #1: Radiologist's Impression: PROCEDURE: XR KNEE RT 3V INDICATIONS: fall,knee pain TECHNIQUE: 3 views of the knee were acquired. COMPARISON: None. FINDINGS: Bones: No fractures or dislocations. No suspicious bony lesions. Soft tissues: No joint effusion. No suspicious soft tissue calcifications. IMPRESSION: No acute osseous abnormality. If pain persists with conservative management, consider repeat x-ray in 10-14 days or cross-sectional imaging. Dictated by: Jona Madden M.D. on 08/28/2023 at 10:35 Approved by: Jona Madden M.D. on 08/28/2023 at 10:36 MDM Narrative Medical decision making narrative: Patient 82-year-old female presents today after mechanical trip and fall with right knee pain. No other injury bruising noted on right knee no significant laceration. X-ray has been reviewed and negative. Knee is stable mild effusion. She is offered knee immobilizer and walking assistance device. She is walker. Discharge Plan Departure Patient Disposition: Home Clinical Impression: Contusion of knee, right Instructions: DI for Contusion Activity Restrictions/Additional Instructions: *You have been diagnosed with right knee contusion *What to do: At this time increase to be as tolerated may elevate and ice. Recommend knee brace. Use crutches or walker if needed *Continue to take medications as directed Tylenol 650 mg every 4-6 hours if needed for eerb-wh-mdyywoct pain Motrin for 600 mg every 6 hours if needed for wbxp-nz-nvdfoxjg pain *Follow up with your primary care provider in 2-3 days or call [phone] *Return to ER if you should have increasing pain swelling numbness tingling weakness [or] any new, worsening or concerning symptoms Prescriptions: No Action triamcinolone acetonide 0.1 % cream 1 applic topical BID PRN (Reason: dermatitis) Qty: 30 2RF estradiol 1 mg tablet 1 mg PO DAILY Qty: 90 2RF (DME) lancets 33 gauge misc See Rx Instructions .Route Qty: 300 4RF Rx Instructions: Use to test blood sugars TID sertraline 25 mg tablet 25 mg PO DAILY Qty: 30 2RF fluticasone propionate [Allergy Relief (fluticasone)] 50 mcg/actuation spray,suspension 1 spray intranasal Q12H Qty: 16 1RF Rx Instructions: administer into each nostril (DME) blood-glucose meter Kit See Rx Instructions .Route Qty: 1 0RF Rx Instructions: Use to test blood sugars daily metformin 1,000 mg tablet 1,000 mg PO BID Qty: 180 0RF Januvia 100 mg tablet 100 mg PO DAILY (DME) Blood Glucose Test Strip See Rx Instructions .Route Qty: 100 4RF Rx Instructions: use to test blood sugars once daily Mcrae Helena Saline 0.65 % drops 2 drp intranasal QID PRN (Reason: dry nasal passages) Qty: 50 2RF Referrals: Shraddha Sosa PA-C [Primary Care Provider] - Stand Alone Forms: Patient Portal/API
[2023-08-28] MEDS: ACETAMINOPHEN 325 MG TABLET 975 MG PO (11:51)
== END 2023-08-28 11:57 | disposition home or self-care (01) ==
PROVIDERS: Emergency Provider Emergency Medicine; Family Provider Physician Assistant; PCP Physician Assistant
DX: S80.01XA Contusion of right knee, initial encounter (principal); W01.0XXA Fall on same level from slipping, tripping and stumbling without subsequent striking against object, initial encounter; Y93.89 Activity, other specified; Y92.239 Unspecified place in hospital as the place of occurrence of the external cause
CPT/HCPCS: 73562; 99283

== ENCOUNTER → 2023-09-09 10:51 | Outpatient (CLI) | payer MEDICARE, SELFPAY ==
--- NOTE | 2023-09-09 10:52 | DI.MG.S_ITS ---
BILATERAL DIGITAL SCREENING MAMMOGRAM 3D/2D WITH CAD: 09/09/2023 CLINICAL: Routine screening. Comparison is made to exams dated: 08/14/2022 mammogram, 07/26/2021 mammogram, and 07/23/2020 mammogram - [facility]. Both breasts are heterogeneously dense, which may obscure small masses (category c / 51-75% glandular tissue). Current study was also evaluated with a Computer Aided Detection (CAD) system. No significant masses, calcifications, or other findings are seen in either breast. There has been no significant interval change. IMPRESSION: NEGATIVE There is no mammographic evidence of malignancy. A 1 year screening mammogram is recommended. Based on the Tyrer Cuzick model (a risk assessment model) the patient's lifetime risk is 0.8% and her 10 year risk is 0.0%. According to the ACR, ACS, and NCCN guidelines, an annual breast MRI exam along with mammogram is recommended if the patient's lifetime risk is 20% or greater. This exam was interpreted at Station ID: [id number]. NOTE: For mammograms, a report in lay terms will be sent to the patient. Approximately 15% of breast malignancies will not be visualized mammographically. In the management of a palpable breast mass, a negative mammogram must not discourage biopsy of a clinically suspicious lesion. Electronically Signed By: Jeremias flynn/payam:09/09/2023 12:41:41 letter sent: Normal Exam ACR BI-RADS Category 1: Negative 3341F
== END ==
PROVIDERS: Family Provider Physician Assistant; PCP Physician Assistant; Referring Provider Physician Assistant; Visit Provider Physician Assistant
DX: Z12.31 Encounter for screening mammogram for malignant neoplasm of breast (principal); R92.333 Mammographic heterogeneous density, bilateral breasts
CPT/HCPCS: 77063; 77067

== ENCOUNTER → 2024-01-04 09:12 | Outpatient (CLI) | payer MEDICARE, SELFPAY ==
[2024-01-04 19:17] LABS: Add Manual Diff / Slide Review NO; Basophils Absolute Auto 0 /uL (0-100); Basophils Percent Auto 0.6 % (0-2); Eosinophils Absolute Auto 100 /uL (0-450); Eosinophils Percent Auto 2.6 % (2-4); Hematocrit 36.7 % (36-46); Hemoglobin 12.5 g/dL (12.0-16.0); Lymphocytes Absolute Auto 1600 /uL (1100-4500); Mean Corpuscular HGB Conc 34.1 % (30-36); Mean Corpuscular Hemoglobin 30.4 PG (26-34); Mean Corpuscular Volume 89.2 fL (80-100); Monocytes Absolute Auto 400 /uL (0-900); Monocytes Percent Auto 9.3 % (3-14); Neutrophils Absolute Auto 2400 /uL (1500-7000); Neutrophils Percent Auto 52.5 % (50-75); Platelet Count 240 X10^3/uL (150-400); Red Blood Cell Count 4.11 X10^6/uL (4.0-5.2); Red Cell Distribution Width 13.8 % (11.6-14.8); White Blood Cell Count 4.6 X10^3/uL (4.5-11.0)
[2024-01-04 19:33] LABS: Alanine Aminotransferase 30 IU/L (<35); Albumin 3.6 g/dL (3.5-5.0); Albumin Globulin Ratio 1.2 (1.0-2.8); Alkaline Phosphatase 91 U/L (38-126); Aspartate Aminotransferase 30 IU/L (14-36); BUN Creatinine Ratio 28.9 (6-22); Bilirubin Total 0.5 mg/dL (0.2-1.3); Blood Urea Nitrogen 22 mg/dL (7-17); Calcium 9.2 mg/dL (8.4-10.2); Carbon Dioxide 29 mmol/L (22-32); Chloride 103 mmol/L (98-107); Cholesterol 224 mg/dL (140-199); Estimated Glomerular Filt Rate > 60 mL/min (>60); Glucose 164 mg/dL (80-110); HDL Cholesterol 110 mg/dL (40-60); HEMOLYSIS < 15 (0-50); LDL Cholesterol Calculated 100 mg/dL (<100); Potassium 4.4 mmol/L (3.4-5.1); Sodium 135 mmol/L (137-145); Total Protein 6.6 g/dL (6.3-8.2); Triglycerides 68 mg/dL (35-150)
[2024-01-04 20:36] LABS: Creatinine Urine Random 107.45 mg/dL
[2024-01-04 20:46] LABS: Microalbumin Urine Random < 0.6 mg/dL (0-1.6)
[2024-01-04 21:03] LABS: Hemoglobin A1C% w Est Avg Glu 6.7 % (4.0-6.0)
== END ==
PROVIDERS: Family Provider Physician Assistant; PCP Physician Assistant; Visit Provider Physician Assistant
DX: E11.9 Type 2 diabetes mellitus without complications (principal)
CPT/HCPCS: 80053; 80061; 82043; 82570; 83036; 85025

== ENCOUNTER → 2024-08-09 11:26 | Outpatient (CLI) | payer MEDICARE, OTHER, SELFPAY ==
[2024-08-09 19:47] LABS: Add Manual Diff / Slide Review NO; Basophils Absolute Auto 0 /uL (0-100); Basophils Percent Auto 0.9 % (0-2); Eosinophils Absolute Auto 100 /uL (0-450); Hematocrit 37.7 % (36-46); Hemoglobin 12.8 g/dL (12.0-16.0); Lymphocytes Absolute Auto 1600 /uL (1100-4500); Lymphocytes Percent Auto 33.3 % (25-40); Mean Corpuscular HGB Conc 34.1 % (30-36); Monocytes Absolute Auto 400 /uL (0-900); Monocytes Percent Auto 8.3 % (3-14); Neutrophils Absolute Auto 2600 /uL (1500-7000); Neutrophils Percent Auto 54.5 % (50-75); Platelet Count 238 X10^3/uL (150-400); Red Blood Cell Count 4.14 X10^6/uL (4.0-5.2); Red Cell Distribution Width 13.3 % (11.6-14.8); White Blood Cell Count 4.9 X10^3/uL (4.5-11.0)
[2024-08-09 19:51] LABS: Alanine Aminotransferase 23 IU/L (<35); Albumin Globulin Ratio 1.5 (1.0-2.8); Alkaline Phosphatase 77 U/L (38-126); Aspartate Aminotransferase 29 IU/L (14-36); BUN Creatinine Ratio 30.8 (6-22); Bilirubin Total 0.5 mg/dL (0.2-1.3); Blood Urea Nitrogen 24 mg/dL (7-17); Calcium 9.2 mg/dL (8.4-10.2); Carbon Dioxide 30 mmol/L (22-32); Chloride 104 mmol/L (98-107); Estimated Glomerular Filt Rate > 60 mL/min (>60); Globulin 2.6 g/dL (1.7-4.1); Glucose 137 mg/dL (70-99); HEMOLYSIS < 15 (0-50); Potassium 4.5 mmol/L (3.4-5.1); Sodium 137 mmol/L (137-145); Total Protein 6.6 g/dL (6.3-8.2)
[2024-08-09 20:34] LABS: Thyroid Stimulating Hormone 1.33 uIU/mL (0.47-4.68)
[2024-08-09 20:53] LABS: Vitamin B12 748 pg/mL (239-931)
== END ==
PROVIDERS: Family Provider Physician Assistant; PCP Family Medicine; Visit Provider Family Medicine
DX: G62.9 Polyneuropathy, unspecified (principal); T38.3X5A Adverse effect of insulin and oral hypoglycemic [antidiabetic] drugs, initial encounter; E11.649 Type 2 diabetes mellitus with hypoglycemia without coma; E11.65 Type 2 diabetes mellitus with hyperglycemia
CPT/HCPCS: 80053; 82607; 83036; 84443; 85025

== ENCOUNTER → 2024-09-19 10:54 | Outpatient (CLI) | payer MEDICARE, OTHER, SELFPAY ==
--- NOTE | 2024-09-19 10:57 | DI.MG.S_ITS ---
MM screening mammo BI: 09/19/2024. BI-RADS: 1 CLINICAL: 83-year old female for bilateral screening mammogram. Tyrer-Cuzick lifetime risk of 0.6%. No personal or first-degree family history of breast cancer. PRIOR EXAMS 09/09/2023, 08/14/2022, 07/26/2021, 07/23/2020, 07/06/2018, 07/14/2017, 06/23/2017, 01/14/2017, 04/29/2016, 05/29/2015, 04/23/2015, 01/18/2015. MAMMOGRAPHY TECHNIQUE: 2D and 3D (tomosynthesis) digital mammographic views obtained, with additional images as needed for full coverage. Current study was also evaluated with a Computer Aided Detection (CAD) system. DENSITY D. The breasts are extremely dense, which lowers the sensitivity of mammography. MAMMOGRAPHY FINDINGS Bilateral: No suspicious mass, asymmetry, microcalcification, or other abnormality seen. No significant change from comparison. IMPRESSION: * No evidence of malignancy. RECOMMENDATIONS Bilateral * Annual screening mammography. OVERALL ASSESSMENT CATEGORY BI-RADS-1: Negative. The [employer] recommends annual screening mammography beginning at age 40 for women with average risk of breast cancer. ELECTRONICALLY SIGNED: Dianna Hnies M.D. on 09/19/2024 at 04:31:16 PM PT Interpreting Station ID: [id number]
== END ==
PROVIDERS: Family Provider Physician Assistant; PCP Family Medicine; Referring Provider Family Medicine; Visit Provider Family Medicine
DX: Z12.31 Encounter for screening mammogram for malignant neoplasm of breast (principal); R92.343 Mammographic extreme density, bilateral breasts
CPT/HCPCS: 77063; 77067

== ENCOUNTER → 2024-12-08 16:20 | Outpatient (CLI) | payer MEDICARE, OTHER, SELFPAY | PROVIDERS: PCP Family Medicine; Visit Provider Nurse Practitioner Family | DX: R30.0 Dysuria (principal); N94.9 Unspecified condition associated with female genital organs and menstrual cycle | CPT/HCPCS: 87086; 87210 ==

== ENCOUNTER → 2024-12-26 16:44 | Outpatient (CLI) | payer MEDICARE, OTHER, SELFPAY | PROVIDERS: PCP Family Medicine; Visit Provider Family Medicine | DX: R39.89 Other symptoms and signs involving the genitourinary system (principal) | CPT/HCPCS: 87086 ==

== ENCOUNTER → 2025-01-16 11:16 | Outpatient (CLI) | payer MEDICARE, OTHER, SELFPAY ==
[2025-01-16 19:26] LABS: Microalbumi Creatinin Ratio Ur 14.0 ug/mg CR (<30)
== END ==
PROVIDERS: PCP Family Medicine; Visit Provider Family Medicine
DX: E11.9 Type 2 diabetes mellitus without complications (principal); Z79.4 Long term (current) use of insulin
CPT/HCPCS: 82043; 82570

== ENCOUNTER → 2025-02-14 10:40 | Outpatient (CLI) | payer MEDICARE, OTHER, SELFPAY ==
[2025-02-14 19:09] LABS: Blood Urea Nitrogen 19 mg/dL (7-17); Calcium 9.2 mg/dL (8.4-10.2); Carbon Dioxide 29 mmol/L (22-32); Chloride 101 mmol/L (98-107); Cholesterol 198 mg/dL (140-199); Estimated Glomerular Filt Rate > 60 mL/min (>60); Glucose 193 mg/dL (70-99); HDL Cholesterol 85 mg/dL (40-60); HEMOLYSIS < 15 (0-50); Potassium 4.1 mmol/L (3.4-5.1); Sodium 138 mmol/L (137-145); Triglycerides 72 mg/dL (35-150)
[2025-02-14 19:21] LABS: Hemoglobin A1C% w Est Avg Glu 7.6 % (4.0-6.0)
== END ==
PROVIDERS: PCP Family Medicine; Visit Provider Family Medicine
DX: E11.9 Type 2 diabetes mellitus without complications (principal); E78.5 Hyperlipidemia, unspecified; Z79.4 Long term (current) use of insulin
CPT/HCPCS: 80048; 80061; 83036